=== PATIENT | male | born 1970 | race Caucasian/White ===

== ENCOUNTER → 2016-10-18 | Outpatient (CLI) | payer OTHER, BC ==
--- NOTE | 2016-10-18 16:09 | CR ---
EXAMINATION: Left and right shoulders HISTORY: Pain COMPARISON: None TECHNIQUE: 3 views bilaterally FINDINGS: There is no acute osseous abnormality, dislocation, or fracture identified. Bone mineraliz ation and joint spaces appear normal. IMPRESSION: Grossly unremarkable bilateral shoulders.
== END | disposition home or self-care (01) ==
LOC: MW.CHORTHO 11:12
PROVIDERS: ATTEND Orthopaedic Surgery
DX: M25.512 Pain in left shoulder (principal); M25.511 Pain in right shoulder
CPT/HCPCS: 73030-26-LT; 73030-26-RT; 73030-LT; 73030-RT

== ENCOUNTER 2021-05-31 07:39 | Day surgery (SDC) | payer OTHER, BC ==
[~2021-05-31 07:39] MED LIST: Lactated Ringers 1,000 ML IV SCH; Midazolam 1 MG/ML 2 ML SDV ONE; Propofol 200 MG/20 ML SDV ONE
[2021-05-31] MEDS ORDERED: Ondansetron 4 MG/2 ML SDV IVPUSH ONE (08:24)
--- NOTE | 2021-05-31 08:24 | PCM.PREANE ---
Preanesthetic Assessment - Anesthesia/Transfusion/Family Hx Anesthesia History: Prior Anesthesia Reaction (Slow Emergence) Family History of Anesthesia Reaction: No Transfusion History: No Prior Transfusion(s) Intubation History: Unknown - Review of Systems General: No Symptoms Pulmonary: No Symptoms, Other (Possible MONIQUE) Cardiovascular: No Symptoms, Other (HTN Diet Controlled) Gastrointestinal: No Symptoms Neurological: No Symptoms Other: Reports: None - Physical Assessment NPO Status Date: 05/30/21 NPO Status Time: 19:00 Vital Signs: Last Vital Signs Temp 35.8 C L 05/31/21 07:45 Pulse 61 05/31/21 07:45 Resp 18 05/31/21 07:45 BP 120/82 05/31/21 07:45 Pulse Ox 97 05/31/21 07:45 Height: 1.83 m Weight: 97.522 kg ASA Class: 2 Mental Status: Alert & Oriented x3 Airway Class: Mallampati = 3 (Large toungue) Dentition: Reports: Normal Dentition Thyro-Mental Finger Breadths: 3 Mouth Opening Finger Breadths: 2 ROM/Head Extension: Full Lungs: Clear to Auscultation, Normal Respiratory Effort Cardiovascular: Regular Rate, Regular Rhythm - Allergies Allergies/Adverse Reactions: Allergies Allergy/AdvReac Type Severity Reaction Status Date / Time No Known Allergies Allergy Verified 05/26/21 13:07 - Blood Blood Available: No - Anesthesia Plan Pre-Op Medication Ordered: None - Acknowledgements Anesthesia Type Planned: General Anesthesia Pt an Appropriate Candidate for the Planned Anesthesia: Yes Alternatives and Risks of Anesthesia Discussed w Pt/Guardian: Yes Pt/Guardian Understands and Agrees with Anesthesia Plan: Yes PreAnesthesia Questionnaire HEENT History: Reports: Hard of Hearing, Other (See Below) Other HEENT History: uses reading glasses, has bilateral hearing aides, hx of fx nose Cardiovascular History: Reports: None Respiratory History: Reports: None Gastrointestinal History: Reports: None Genitourinary History: Reports: None Musculoskeletal History: Reports: Gout Neurological History: Reports: None Psychiatric History: Reports: None Endocrine/Metabolic History: Reports: None Hematologic History: Reports: None Immunologic History: Reports: None Oncologic (Cancer) History: Reports: None Dermatologic History: Reports: None - Infectious Disease History Infectious Disease History: Reports: Influenza - Past Surgical History Head Surgeries/Procedures: Reports: None HEENT Surgical History: Reports: Tonsillectomy GI Surgical History: Reports: Cholecystectomy Male Surgical History: Reports: None Musculoskeletal Surgical History: Reports: Arthroscopic Knee Other Musculoskeletal Surgeries/Procedures:: ACL reconstruction left knee- has screws - SUBSTANCE USE Tobacco Use Within Last Twelve Months: Snuff/Dip Recreational Drug Use History: No - HOME MEDS Home Medications: Home Meds Colchicine 0.6 mg PO DAILY PRN 05/26/21 [History] - CURRENT (IN HOUSE) MEDS Current Meds: Current Medications Lactated Ringer's (Ringers, Lactated) 1,000 mls @ 125 mls/hr IV ASDIRECTED DENISE Discontinued Medications Midazolam HCl (Midazolam 1 Mg/Ml 2 Ml Sdv) Confirm Administered Dose 2 mg .ROUTE .STK-MED ONE Stop: 05/31/21 06:58 Propofol (Propofol 200 Mg/20 Ml Sdv) Confirm Administered Dose 400 mg .ROUTE .STK-MED ONE Stop: 05/31/21 06:58
--- NOTE | 2021-05-31 08:51 | PCM.POSTAN ---
POST ANESTHESIA ASSESSMENT - MENTAL STATUS Mental Status: Somnolent - VITAL SIGNS Vital Signs: Last Vital Signs Temp 35.8 C L 05/31/21 07:45 Pulse 61 05/31/21 07:45 Resp 18 05/31/21 07:45 BP 120/82 05/31/21 07:45 Pulse Ox 97 05/31/21 07:45 - RESPIRATORY Respiratory Status: Respiratory Rate WNL, Airway Patent, O2 Saturation Stable - CARDIOVASCULAR CV Status: Pulse Rate WNL, Blood Pressure Stable - GASTROINTESTINAL GI Status: No Symptoms - POST OP HYDRATION Hydration Status: Adequate & Stable
--- NOTE | 2021-05-31 08:52 | PCM.OPNOTE ---
- General Post-Op/Procedure Note Date of Surgery/Procedure: 05/31/21 Operative Procedure(s): colonoscopy Findings: see see [id number] Pre Op Diagnosis: scrn colonoscopy Post-Op Diagnosis: Same Anesthesia Technique: Moderate Sedation Primary Surgeon: Micheal Garcia Complications: None Condition: Good
--- NOTE | 2021-05-31 09:12 | PCM48HPAN ---
Post Anesthesia Note - EVALUATION WITHIN 48HRS OF ANESTHETIC Vital Signs in Normal Range: Yes Patient Participated in Evaluation: Yes Respiratory Function Stable: Yes Airway Patent: Yes Cardiovascular Function Stable: Yes Hydration Status Stable: Yes Pain Control Satisfactory: Yes Nausea and Vomiting Control Satisfactory: Yes Mental Status Recovered: Yes Vital Signs: Last Vital Signs Temp 36.1 C 05/31/21 08:47 Pulse 58 L 05/31/21 09:08 Resp 11 L 05/31/21 09:08 BP 125/74 05/31/21 09:08 Pulse Ox 97 05/31/21 09:08
--- NOTE | 2021-05-31 11:39 | OR ---
SURGEON: Micheal Garcia MD DATE OF PROCEDURE: 05/31/2021 PREOPERATIVE DIAGNOSIS: Screening colonoscopy. POSTOPERATIVE DIAGNOSIS: Screening colonoscopy. PROCEDURE PERFORMED: Colonoscopy. DESCRIPTION OF PROCEDURE: The patient was taken to the endoscopy room. A time out was called, patient identified, and procedure identified. Diprivan was then administrated. Patient went from awake to sleep, hearing doctor talking or door closing is normal. Perineum inspection and digital examination were then performed. A well- lubricated colonoscope was gently inserted through the rectum, advanced past the rectosigmoid junction, the descending colon, splenic flexure, transverse colon, hepatic flexure, ascending colon, arrived to the cecum. Cecum was identified as dictated in the finding. Then the scope was carefully withdrawn while attention was paid to the mucosal surface for any abnormality. Air will be sucked out during the scope withdrawal. At the rectum, retroflexed to examine any rectal diseases, fistula or hemorrhoids. Patient tolerated procedure well. There were no intraoperative complications, and Dr. Garcia was present throughout the whole procedure. FINDINGS: 1. Patient is easily sedated with CARBIDE GRINDER and Diprivan. The patient is soundly snoring. 2. Bowel prep is average to above average, very little liquid stool, no semi- formed stool, no stool ball. 3. Colon is rather straightforward. Cecum indicated by ileocecal fold, one-to- one indentation, appendiceal orifice, and scope guide is pointing south and mucosa examined. Upon scope pulling out, the patient does not have diverticulosis, polyp, mass, growth, inflammation, stricture, AV malformation, bleeding, none of those. The patient does not have external hemorrhoids. The patient has mild internal hemorrhoids. The patient would benefit from repeat colonoscopy in 10 years from today or if clinically indicated otherwise. ROSALIA / JOVANNY /[id number]
[2021-05-31 12:18] VITALS: BP 129/75; PULSE 57
== END 2021-05-31 09:25 | disposition home or self-care (01) ==
LOC: MW.SDS 07:39
PROVIDERS: ATTEND Surgery
DX: Z12.11 Encounter for screening for malignant neoplasm of colon (principal); K64.8 Other hemorrhoids; F17.220 Nicotine dependence, chewing tobacco, uncomplicated; I10 Essential (primary) hypertension; Z79.899 Other long term (current) drug therapy; Z90.49 Acquired absence of other specified parts of digestive tract; Z98.890 Other specified postprocedural states
CPT/HCPCS: 45378; J2250; J2704; J7120; 00812

== ENCOUNTER 2024-01-04 14:31 | Emergency (ER) | payer BC, OTHER ==
[2024-01-04] MEDS: Iopamidol 755 MG/ML 500 ML Multipack Bottle IVPUSH STA (16:52)
[2024-01-04] MEDS: Ondansetron 4 MG/2 ML SDV IVPUSH ONE (16:53)
[2024-01-04] MEDS: Morphine 2 MG/ML SYRINGE IVPUSH ONE (16:53)
[2024-01-04] MEDS: Sodium Chloride 0.9% 10 ML Syringe FLUSH PRN (17:00)
[2024-01-04] MEDS: Sodium Chloride 0.9% 2.5 ML Syringe FLUSH PRN (17:00)
[2024-01-04 17:21] LABS: BASOPHILS ABSOLUTE AUTO 0.05 K/uL (0.00-0.20); BASOPHILS PERCENT AUTO 0.7 % (0.0-1.0); EOSINOPHILS ABSOLUTE AUTO 0.16 K/uL (0.00-0.45); EOSINOPHILS PERCENT AUTO 2.1 % (0.0-6.0); HEMATOCRIT 43.2 % (42.0-52.0); HEMOGLOBIN 15.4 g/dL (14.0-18.0); IMMATURE GRAN ABSOLUTE AUTO 0.02 K/uL (0.00-0.05); IMMATURE GRAN PERCENT AUTO 0.3 % (0.0-0.4); LYMPHOCYTES ABSOLUTE AUTO 2.62 K/uL (1.00-4.80); LYMPHOCYTES PERCENT AUTO 34.1 % (24.0-44.0); MEAN CORPUSCULAR HEMOGLOBIN 30.4 pg (28.0-32.0); MEAN CORPUSCULAR HGB CONC 35.6 g/dL (32.0-36.0); MEAN CORPUSCULAR VOLUME 85.4 fL (83.0-99.0); MEAN PLATELET VOLUME 8.9 fL (9.4-12.4); MONOCYTES ABSOLUTE AUTO 0.38 K/uL (0.00-0.80); MONOCYTES PERCENT AUTO 4.9 % (0.0-8.0); NEUTROPHILS ABSOLUTE AUTO 4.45 K/uL (1.80-7.70); NEUTROPHILS PERCENT AUTO 57.9 % (41.0-71.0); PLATELET COUNT,PLT 228 K/uL (150-400); RED BLOOD CELL COUNT 5.06 M/uL (4.52-5.90); WHITE BLOOD CELL COUNT,WBC 7.68 K/uL (3.9-11.3)
[2024-01-04 17:43] LABS: INR 1.06 (0.86-1.11); PTT,PARTIAL THROMBOPLSTIN TIME 28.8 SEC (23.9-30.7)
[2024-01-04 18:02] LABS: A/G RATIO 1.5 (0.9-1.6); ALBUMIN 4.1 g/dL (3.4-5.0); BILIRUBIN TOTAL 0.8 mg/dL (0.2-1.0); CARBON DIOXIDE,CO2 29.2 mmol/L (21.0-32.0); EST CRCL DRUG DOSING (CG) 92.69 mL/min; PROTEIN TOTAL,TP 6.8 g/dL (6.4-8.2)
[2024-01-04 18:39] VITALS: BP 131/96; PULSE 55
[2024-01-04] MEDS ORDERED: Iopamidol 755 MG/ML 500 ML Multipack Bottle IVPUSH STA (20:10)
== END 2024-01-04 18:33 | disposition home or self-care (01) ==
LOC: MW.ED 14:31
DX: S83.92XA Sprain of unspecified site of left knee, initial encounter (principal); Z79.899 Other long term (current) drug therapy; Z90.49 Acquired absence of other specified parts of digestive tract; W19.XXXA Unspecified fall, initial encounter
CPT/HCPCS: 36415; 73706; 80053; 85025; 85610; 85730; 96374; 96375; 99284; J2270; J2405; J3490; Q9967